=== PATIENT | male | born 1975 | race Caucasian/White ===

== ENCOUNTER 2018-09-21 20:28 | Emergency (ER) | payer OTHER ==
[~2018-09-21] VITALS: Ht 182.9 cm; Wt 100.7 kg
== END 2018-09-21 22:27 | disposition home or self-care (01) ==
LOC: ER 20:28
DX: H93.8X1 Other specified disorders of right ear (principal); H72.91 Unspecified perforation of tympanic membrane, right ear

== ENCOUNTER → 2018-11-18 | Emergency (ER) | payer OTHER ==
[~2018-11-18] VITALS: Ht 182.9 cm; Wt 98.0 kg
== END | disposition home or self-care (01) ==
LOC: ER 20:15
DX: K40.90 Unilateral inguinal hernia, without obstruction or gangrene, not specified as recurrent (principal)

== ENCOUNTER 2018-12-23 08:47 | Outpatient (CLI) | payer OTHER | END 2018-12-23 09:07 | disposition home or self-care (01) | LOC: RAD 08:47 | DX: K40.90 Unilateral inguinal hernia, without obstruction or gangrene, not specified as recurrent (principal); Z01.810 Encounter for preprocedural cardiovascular examination ==

== ENCOUNTER 2019-01-04 06:12 | Day surgery (SDC) | payer OTHER ==
[2019-01-04] MEDS ORDERED: SURFAK240 M1 PO (12:46)
[2019-01-04] MEDS ORDERED: ULTRACET PO (12:46)
[2019-01-04] MEDS ORDERED: KEFLEX500 MG PO (12:46)
== END 2019-01-04 16:00 | disposition home or self-care (01) ==
LOC: CIR.AMB 06:12
DX: K40.90 Unilateral inguinal hernia, without obstruction or gangrene, not specified as recurrent (principal); D17.6 Benign lipomatous neoplasm of spermatic cord

== ENCOUNTER 2021-06-19 16:24 | Emergency (ER) | payer OTHER ==
[~2021-06-19] VITALS: Ht 182.9 cm; Wt 83.5 kg
[~2021-06-19 16:24] MED LIST: KEFLEX500 MG PO; SURFAK240 M1 PO; ULTRACET PO
== END 2021-06-19 21:40 | disposition home or self-care (01) ==
LOC: ER 16:24
DX: R10.32 Left lower quadrant pain (principal)

== ENCOUNTER 2022-03-22 13:05 | Emergency (ER) | payer OTHER ==
[~2022-03-22] VITALS: Ht 182.9 cm; Wt 129.3 kg
[2022-03-22] MEDS ORDERED: PROTONIX40 MG PO (16:33)
[2022-03-22] MEDS ORDERED: LEVSIN/SL0.125 MG SL (16:33)
== END 2022-03-22 16:58 | disposition home or self-care (01) ==
LOC: ER 13:05
DX: R10.13 Epigastric pain (principal)

== ENCOUNTER 2022-03-25 10:07 | Emergency (ER) | payer OTHER ==
[~2022-03-25] VITALS: Ht 180.3 cm; Wt 125.6 kg
[~2022-03-25 10:07] MED LIST changes: +LEVSIN/SL0.125 MG SL; +PROTONIX40 MG PO
== END 2022-03-25 12:24 | disposition home or self-care (01) ==
LOC: ER 10:07
DX: R10.13 Epigastric pain (principal)

== ENCOUNTER 2022-03-29 07:10 | Outpatient (CLI) | payer OTHER | END 2022-03-29 07:19 | disposition home or self-care (01) | LOC: TOM 07:10 | PROVIDERS: ATTEND Internal Medicine Gastroenterology | DX: R10.84 Generalized abdominal pain (principal); R74.01 Elevation of levels of liver transaminase levels; R74.8 Abnormal levels of other serum enzymes ==

== ENCOUNTER 2022-05-31 19:31 | Emergency (ER) | payer OTHER ==
[~2022-05-31] VITALS: Ht 182.9 cm; Wt 126.6 kg
[2022-05-31] MEDS ORDERED: FENOFIBRATE160 MG PO (21:00)
[2022-05-31] MEDS ORDERED: ONGLYZA5 MG PO (21:00)
[2022-05-31] MEDS ORDERED: AMOXICILLIN500 M1 PO (21:01)
[2022-05-31] MEDS ORDERED: KETO10TA2 PO (21:29)
[2022-05-31] MEDS ORDERED: DUI500 PO (21:29)
== END 2022-05-31 21:38 | disposition home or self-care (01) ==
LOC: ER 19:31
DX: L03.012 Cellulitis of left finger (principal); E11.9 Type 2 diabetes mellitus without complications; I10 Essential (primary) hypertension